=== PATIENT | male | born 1945 | race African-American/Black ===

== ENCOUNTER 2017-05-18 06:36 | Emergency (ER) | payer BC ==
[2017-05-18 07:39] LABS: #Basophils 0.1 thou/uL (0.0-0.2); #Eosinphils 0.1 thou/uL (0.0-0.7); #Lymphocytes 0.7 thou/uL (1.20-3.40); #Monocytes 1.3 thou/uL (0.11-0.59); #Neutrophils 8.3 thou/uL (1.40-6.50); %Basophils 0.5 % (0.0-1.0); %Eosinophils 0.6 % (0.0-10.0); %Lymphocytes 6.7 % (21.0-51.0); %Monocytes 12.4 % (0.0-10.0); %Neutrophils 79.9 % (42.0-75.0); Hemoglobin 7.9 g/dL (14.0-18.0); Mean Corpuscular HGB CONC 31.6 g/dL (32.0-36.0); Mean Corpuscular Hemoglobin 29.3 pg (27.0-31.0); Mean Corpuscular Volume 92.8 fl (80.0-94.0); Mean Platelet Volume 6.9 fL (7.4-10.4); Platelet Count 355 thou/uL (130-400); RBC Distribution Width 15.3 % (11.5-14.5); Red Blood Cell (RBC) Count 2.68 mill/uL (4.70-6.10); White Blood Cell (WBC) Count 10.4 thou/uL (4.8-10.8)
[2017-05-18 08:00] LABS: ALT (SGPT) 15 U/L (8-55); AST (SGOT) 23 U/L (5-34); Albumin 2.2 g/dL (3.4-4.8); Alkaline Phosphatase 209 U/L (40-150); Anion Gap 9 mmol/L (10-20); BUN (Urea Nitrogen) 10 mg/dL (8.4-25.7); Bilirubin, Total 2.5 mg/dL (0.2-1.2); Calc. Creatinine Clearance 0 mL/min (70-130); Calcium 7.7 mg/dL (7.8-10.44); Carbon Dioxide 26 mmol/L (23-31); Chloride 104 mmol/L (98-107); Estimated GFR-MDRD Greater than 90; Globulin 4.4 g/dL (2.4-3.5); Glucose 69 mg/dL (80-115); Protein, Total 6.6 g/dL (5.8-8.1); Sodium 136 mmol/L (136-145)
[2017-05-18 08:04] LABS: CKMB 0.5 ng/mL (0-6.6); Troponin I 0.015 ng/mL (< 0.028)
[2017-05-18 08:33] LABS: Potassium 2.5 mmol/L (3.5-5.1)
--- NOTE | 2017-05-18 08:34 | RAD ---
PORTABLE CHEST 1 VIEW: Date: 05/18/17 Time: 0800 hours HISTORY: Cough. FINDINGS: Comparison made with exam of 09/06/10. The heart size is normal. There is a right-sided Port-A-Cath with tip in the projection of the SVC. T here are infiltrates in the lower lung reyes. No pneumothoraces or large effusions are seen. IMPRESSION: Findings are suspicious for pneumonia. POS: [facility]
[2017-05-18] MEDS ORDERED: Potassium Chloride 40 MEQ, Admixture Fee 1 EACH in Sodium Chloride 0.9% 250 ML 250 ML IVPB SCH (08:45)
--- NOTE | 2017-06-10 17:34 | EKG ---
Test Reason : Blood Pressure : / mmHG Vent. Rate : 072 BPM Atrial Rate : 072 BPM P-R Int : 130 ms QRS Dur : 088 ms QT Int : 424 ms P-R-T Axes : 025 -05 -01 degrees QTc Int : 464 ms Normal sinus rhythm Cannot rule out Anterior infarct , age undetermined Abnormal ECG Confirmed by NURY LARA, AGATHA ([id number]), editorial director ANT BOTELLO ([id number]) on 06/10/2017 5:33:22 PM Referred By: Confirmed By:AGATHA ARRINGTON MD
== END 2017-05-18 11:10 | disposition short-term general hospital (02) ==
LOC: ERS 06:36
DX: E11.649 Type 2 diabetes mellitus with hypoglycemia without coma (principal); J18.9 Pneumonia, unspecified organism; I10 Essential (primary) hypertension; Z79.84 Long term (current) use of oral hypoglycemic drugs; Z79.899 Other long term (current) drug therapy
CPT/HCPCS: 36415; 36416; 71045; 80053; 82553; 84484; 85025; 87040; 93005; 96361; 96365; 96367; J3370; J3480; J7050